=== PATIENT | female | born 1995 | race African-American/Black ===

== ENCOUNTER 2017-02-09 12:32 | Emergency (ER) | payer OTHER ==
[~2017-02-09] VITALS: Ht 177.8 cm; Wt 100.0 kg
[~2017-02-09 12:32] MED LIST: SERO200T PO
[2017-02-09 12:34] VITALS: BP 120/75; PULSE 113; RESP 20; TEMP 98.8; O2SAT 99
[2017-02-09] MEDS ORDERED: albuterol inhaler (12:46)
[2017-02-09] MEDS ORDERED: SODIUM CHLOR 0.9% 1000 ML INJ 1,000 ML IV SCH (13:14)
[2017-02-09] MEDS ORDERED: ONDANSETRON HCL 4 MG/2 ML VIAL IVP ONE (13:15)
[2017-02-09] MEDS ORDERED: ALUMINUM/MAGNESIUM/SIMETH 30 ML CUP PO ONE (13:15)
[2017-02-09] MEDS ORDERED: LIDOCAINE VISCOUS 2% SOLN 15 ML UDC PO ONE (13:15)
[2017-02-09] MEDS ORDERED: SODIUM CHLORIDE 0.9% FLUSH 10 ML FLUSH IV FLUSH PRN (13:15)
--- NOTE | 2017-02-09 13:15 | PD ---
HPI Chief Complaint: Abdominal Pain Time Seen by Provider: 12:53 Travel History International Travel<30 days: No Contact w/Intl Traveler<30days: No Traveled to known affect area: No History of Present Illness HPI 21 year old female presents to the ED for evaluation of epigastric pain, nausea , and vomiting since yesterday. Pt denies hematemesis. Pt states epigastric pain is exacerbated after vomiting, but then seems to improve. Pt reports chronic diarrhea since her gallbladder being removed 2 years ago. Denies fever and chills. Denies chest pain or tightness. no other symptoms to report. PFSH Past Medical History ADHD: Yes Asthma: Yes Blood Disorders: No Anxiety: Yes Depression: Yes Cancer: No Cardiovascular Problems: No Diminished Hearing: No Endocrine: No Genitourinary: No Immune Disorder: No Musculoskeletal: No Neurologic: No Reproductive: No Respiratory: Yes ?: Unknown LMP: 01/07/2017 : 2 Para: 1 Past Surgical History Section: No Cholecystectomy: Yes Other Surgery: No Social History Alcohol Use: No Tobacco Use: No Substance Use: No Allergies-Medications (Allergen,Severity, Reaction): Coded Allergies: chocolate flavor (Unverified Allergy, Severe, 02/09/17) shellfish derived (Unverified Allergy, Unknown, 02/09/17) Reported Meds & Prescriptions Reported Meds & Active Scripts Active Zofran Odt (Ondansetron Odt) 4 Mg Tab 4 Mg SL Q6HR PRN Omeprazole 40 Mg Cap 40 Mg PO DAILY Reported [albuterol inhaler] Review of Systems Except as stated in HPI: all other systems reviewed are Neg Physical Exam Narrative GENERAL: Well-nourished, well-developed male patient in no acute distress SKIN: Focused skin assessment warm/dry. HEAD: Normocephalic. EYES: No scleral icterus. No injection or drainage. NECK: Supple, trachea midline. No JVD or lymphadenopathy. CARDIOVASCULAR: Regular rate and rhythm without murmurs, gallops, or rubs. RESPIRATORY: Breath sounds equal bilaterally. No accessory muscle use. GASTROINTESTINAL: Abdomen soft, undistended. Mild epigastric tenderness to palpation. No rebound tenderness. No guarding. Normal active bowel sounds. MUSCULOSKELETAL: No cyanosis, or edema. BACK: Nontender without obvious deformity. No CVA tenderness. Data Data Last Documented VS Vital Signs Date Time Temp Pulse Resp B/P (MAP) Pulse Ox O2 Delivery O2 Flow Rate FiO2 02/09/17 13:31 98.7 93 19 112/58 (76) 96 Room Air Orders Orders Complete Blood Count With Diff (02/09/17 13:14) Comprehensive Metabolic Panel (02/09/17 13:14) Lipase (02/09/17 13:14) Urinalysis - C+S If Indicated (02/09/17 13:14) Iv Access Insert/Monitor (02/09/17 13:14) Ecg Monitoring (02/09/17 13:14) Oximetry (02/09/17 13:14) Ondansetron Inj (Zofran Inj) (02/09/17 13:15) Sodium Chlor 0.9% 1000 Ml Inj (Ns 1000 M (02/09/17 13:14) Sodium Chloride 0.9% Flush (Ns Flush) (02/09/17 13:15) Al-Mag Hy-Si 40-40-4 Mg/Ml Liq (Mag-Al P (02/09/17 13:15) Lidocaine 2% Viscous (Xylocaine 2% Visco (02/09/17 13:15) Ed Urine Pregnancytest Poc (02/09/17 13:14) Potassium Chloride (Kcl) (02/09/17 14:30) Labs Laboratory Tests Test 02/09/17 13:25 White Blood Count 5.1 TH/MM3 Red Blood Count 4.50 MIL/MM3 Hemoglobin 12.8 GM/DL Hematocrit 38.3 % Mean Corpuscular Volume 85.1 FL Mean Corpuscular Hemoglobin 28.4 PG Mean Corpuscular Hemoglobin Concent 33.4 % Red Cell Distribution Width 15.7 % Platelet Count 200 TH/MM3 Mean Platelet Volume 8.3 FL Neutrophils (%) (Auto) 70.5 % Lymphocytes (%) (Auto) 20.0 % Monocytes (%) (Auto) 7.6 % Eosinophils (%) (Auto) 1.7 % Basophils (%) (Auto) 0.2 % Neutrophils # (Auto) 3.6 TH/MM3 Lymphocytes # (Auto) 1.0 TH/MM3 Monocytes # (Auto) 0.4 TH/MM3 Eosinophils # (Auto) 0.1 TH/MM3 Basophils # (Auto) 0.0 TH/MM3 CBC Comment DIFF FINAL Differential Comment Urine Color YELLOW Urine Turbidity CLEAR Urine pH 6.0 Urine Specific [place] 1.027 Urine Protein 30 mg/dL Urine Glucose (UA) NEG mg/dL Urine Ketones NEG mg/dL Urine Occult Blood NEG Urine Nitrite NEG Urine Bilirubin NEG Urine Urobilinogen LESS THAN 2.0 MG/DL Urine Leukocyte Esterase NEG Urine RBC LESS THAN 1 /hpf Urine WBC 2 /hpf Urine Squamous Epithelial Cells 5 /hpf Urine Hyaline Casts 1 /lpf Urine Mucus FEW /lpf Microscopic Urinalysis Comment CULT NOT INDICATED Blood Urea Nitrogen 11 MG/DL Creatinine 0.68 MG/DL Random Glucose 94 MG/DL Total Protein 6.9 GM/DL Albumin 3.4 GM/DL Calcium Level 7.7 MG/DL Alkaline Phosphatase 57 U/L Aspartate Amino Transf (AST/SGOT) 17 U/L Alanine Aminotransferase (ALT/SGPT) 20 U/L Total Bilirubin 0.9 MG/DL Sodium Level 140 MEQ/L Potassium Level 3.1 MEQ/L Chloride Level 108 MEQ/L Carbon Dioxide Level 24.5 MEQ/L Anion Gap 8 MEQ/L Estimat Glomerular Filtration Rate 131 ML/MIN Lipase 73 U/L [facility] Medical Decision Making Medical Screen Exam Complete: Yes Emergency Medical Condition: Yes Medical Record Reviewed: Yes Differential Diagnosis Gastritis versus indigestion versus PUD versus elective foot abnormality versus Narrative Course 21-year-old female presents to emergency department for evaluation nausea and vomiting. Patient appears without distress. Her vital signs are stable. She has mild epigastric tenderness to palpation, otherwise abdominal exam is benign. Laboratory Tests Test 02/09/17 13:25 White Blood Count 5.1 TH/MM3 Red Blood Count 4.50 MIL/MM3 Hemoglobin 12.8 GM/DL Hematocrit 38.3 % Mean Corpuscular Volume 85.1 FL Mean Corpuscular Hemoglobin 28.4 PG Mean Corpuscular Hemoglobin Concent 33.4 % Red Cell Distribution Width 15.7 % Platelet Count 200 TH/MM3 Mean Platelet Volume 8.3 FL Neutrophils (%) (Auto) 70.5 % Lymphocytes (%) (Auto) 20.0 % Monocytes (%) (Auto) 7.6 % Eosinophils (%) (Auto) 1.7 % Basophils (%) (Auto) 0.2 % Neutrophils # (Auto) 3.6 TH/MM3 Lymphocytes # (Auto) 1.0 TH/MM3 Monocytes # (Auto) 0.4 TH/MM3 Eosinophils # (Auto) 0.1 TH/MM3 Basophils # (Auto) 0.0 TH/MM3 CBC Comment DIFF FINAL Differential Comment Urine Color YELLOW Urine Turbidity CLEAR Urine pH 6.0 Urine Specific [place] 1.027 Urine Protein 30 mg/dL Urine Glucose (UA) NEG mg/dL Urine Ketones NEG mg/dL Urine Occult Blood NEG Urine Nitrite NEG Urine Bilirubin NEG Urine Urobilinogen LESS THAN 2.0 MG/DL Urine Leukocyte Esterase NEG Urine RBC LESS THAN 1 /hpf Urine WBC 2 /hpf Urine Squamous Epithelial Cells 5 /hpf Urine Hyaline Casts 1 /lpf Urine Mucus FEW /lpf Microscopic Urinalysis Comment CULT NOT INDICATED Blood Urea Nitrogen 11 MG/DL Creatinine 0.68 MG/DL Random Glucose 94 MG/DL Total Protein 6.9 GM/DL Albumin 3.4 GM/DL Calcium Level 7.7 MG/DL Alkaline Phosphatase 57 U/L Aspartate Amino Transf (AST/SGOT) 17 U/L Alanine Aminotransferase (ALT/SGPT) 20 U/L Total Bilirubin 0.9 MG/DL Sodium Level 140 MEQ/L Potassium Level 3.1 MEQ/L Chloride Level 108 MEQ/L Carbon Dioxide Level 24.5 MEQ/L Anion Gap 8 MEQ/L Estimat Glomerular Filtration Rate 131 ML/MIN Lipase 73 U/L Patient is a potassium of 3.1. This is repleted here in the emergency department. Patient was given Zofran IV normal saline bolus and verbalize improvement in her symptoms following intervention. She'll be discharged home and agrees to return immediately with any acute worsening symptoms. Diagnosis Primary Impression: Nausea & vomiting Qualified Codes: R11.2 - Nausea with vomiting, unspecified Additional Impression: Hypokalemia Referrals: Primary Care Physician Patient Instructions: Diet for Stomach Ulcers and Gastritis (GEN), General Instructions Additional Instructions: Avoid abrasive and acidic foods Follow-up with a primary care provider Return immediately to the emergency department with any acute worsening of symptoms Med/Other Pt SpecificInfo: Prescription(s) given Scripts Ondansetron Odt (Zofran Odt) 4 Mg Tab 4 MG SL Q6HR Y for Nausea/Vomiting, #10 TAB 0 Refills Prov: Jenifer Martinez 02/09/17 Omeprazole (Omeprazole) 40 Mg Cap 40 MG PO DAILY, #14 CAP 0 Refills Prov: Jenifer Martinez 02/09/17 Disposition: 01 DISCHARGE HOME Condition: Stable Jenifer Martinez Feb 09, 2017 13:15
[2017-02-09 13:31] VITALS: BP 112/58; PULSE 93; RESP 19; TEMP 98.7; O2SAT 96
[2017-02-09 13:59] LABS: AUTOMATED NEUTROPHIL # 3.6 TH/MM3 (1.8-7.7); BASOPHIL % 0.2 % (0.0-2.0); EOSINOPHIL # 0.1 TH/MM3 (0-0.4); EOSINOPHIL % 1.7 % (0.0-4.0); HEMATOCRIT 38.3 % (35.0-46.0); HEMO FLAGS DIFF FINAL; MEAN CELL VOLUME 85.1 FL (80.0-100.0); MEAN CORPUSCULAR HEMOGLOBIN 28.4 PG (27.0-34.0); MEAN CORPUSCULAR HGB CONC 33.4 % (32.0-36.0); MONO % 7.6 % (0.0-8.0); NEUT % 70.5 % (16.0-70.0); PLATELET COUNT 200 TH/MM3 (150-450); RED CELL DISTRIBUTION WIDTH 15.7 % (11.6-17.2); WHITE BLOOD COUNT 5.1 TH/MM3 (4.0-11.0)
[2017-02-09 14:20] LABS: ALT (GPT) 20 U/L (10-53); ANION GAP 8 MEQ/L (5-15); AST (GOT) 17 U/L (15-37); BICARBONATE 24.5 MEQ/L (21.0-32.0); BLOOD UREA NITROGEN 11 MG/DL (7-18); BLOOD, URINE NEG (NEG); CHLORIDE 108 MEQ/L (98-107); COMMENT (UR) CULT NOT INDICATED; CULTURE IF INDICATED CULT NOT INDICATED; GLOMERULAR FILTRATION RATE 131 ML/MIN (>89); GLUCOSE,URINE NEG (NEG); HYALINE CAST, URINE 1 /lpf (RARE); KETONE, URINE NEG (NEG); MUCUS URINE FEW /lpf (OCC); NITRITE,URINE NEG (NEG); POTASSIUM 3.1 MEQ/L (3.5-5.1); SODIUM (NA) 140 MEQ/L (136-145); SQUAMOUS EPITHELIAL CELL URINE 5 /hpf (0-5); URINE COLOR YELLOW (YELLW/STRAW)
[2017-02-09 14:23] LABS: ALKALINE PHOSPHATASE 57 U/L (45-117); TOTAL BILIRUBIN ADULT 0.9 MG/DL (0.2-1.0)
[2017-02-09] MEDS ORDERED: POTASSIUM CHLORIDE 10 MEQ CONTROLLED RELEASE TAB PO ONE (14:30)
[2017-02-09] MEDS ORDERED: OMEP40CA2 PO (14:37)
[2017-02-09] MEDS ORDERED: ZOFR4TAB3 SL (14:37)
[2017-02-09 15:44] VITALS: BP 112/58
== END 2017-02-09 15:00 | disposition home or self-care (01) ==
LOC: NEPD 12:32
DX: R11.2 Nausea with vomiting, unspecified (principal); E87.6 Hypokalemia; J45.909 Unspecified asthma, uncomplicated
CPT/HCPCS: 80053; 81001; 83690; 84703; 85025; 96361; 96374; 99284; J2405; J7030

== ENCOUNTER 2017-03-08 19:11 | Emergency (ER) | payer OTHER ==
[~2017-03-08 19:11] MED LIST changes: +OMEP40CA2 PO; -SERO200T PO; +ZOFR4TAB3 SL; +albuterol inhaler
[2017-03-08 19:12] VITALS: BP 128/80; PULSE 100; RESP 16; TEMP 99; O2SAT 97
== END 2017-03-08 20:50 | disposition left against medical advice (07) ==
LOC: NED 19:11
DX: J00 Acute nasopharyngitis [common cold] (principal)
CPT/HCPCS: 99281

== ENCOUNTER 2017-05-02 08:49 | Emergency (ER) | payer MEDICAID, OTHER ==
[~2017-05-02] VITALS: Ht 177.8 cm; Wt 90.5 kg
[2017-05-02 08:57] VITALS: BP 120/80; PULSE 81; RESP 18; TEMP 98.6; O2SAT 100
[2017-05-02] MEDS ORDERED: SODIUM CHLOR 0.9% 1000 ML INJ 1,000 ML IV SCH (09:34)
[2017-05-02] MEDS ORDERED: SODIUM CHLORIDE 0.9% FLUSH 10 ML FLUSH IV FLUSH PRN (09:45)
[2017-05-02] MEDS ORDERED: ONDANSETRON HCL 4 MG/2 ML VIAL IVP ONE (09:45)
--- NOTE | 2017-05-02 09:53 | PD ---
HPI Chief Complaint: Anxiety Time Seen by Provider: 09:19 Travel History International Travel<30 days: No Contact w/Intl Traveler<30days: No Traveled to known affect area: No History of Present Illness HPI Miss Kowalski is a 21-year-old female who presents emergency room via [facility] for evaluation of an anxiety attack. Patient reports that she was at work today, reports that she had an anxiety attack and EMS were called. Patient reports that she is unsure why she gets these anxiety attacks, reports that when this happens, her heart races and she hyperventilates. Patient reports that she was told to come to the emergency room for evaluation of her anxiety attack, reports that at this time, she has complete resolution of symptoms. Patient unsure of why she had an anxiety attack this morning. Patient denies any chest pain or palpitations this time, reports that she does feel comfortable. Denies any shortness of breath at this time. Denies any use of drugs or alcohol Patient reports that this morning, she did have an episode of lightheadedness and did have an episode of nausea and vomiting around 4 AM. Patient reports no abdominal pain at this time, reports resolution of nausea and vomiting. Patient reports that she does feel lightheaded, denies any overt headache, denies any fever or chills, denies any trauma to the head. Denies any vision changes, reports that nothing makes symptoms better or worse at this time. PFSH Past Medical History ADHD: Yes Asthma: Yes Blood Disorders: No Anxiety: Yes Depression: Yes Cancer: No Cardiovascular Problems: No Diminished Hearing: No Endocrine: No Genitourinary: No Immune Disorder: No Musculoskeletal: No Neurologic: No Reproductive: No Respiratory: Yes : 2 Para: 1 Past Surgical History Section: No Cholecystectomy: Yes Other Surgery: No Social History Alcohol Use: No Tobacco Use: No Substance Use: No Allergies-Medications (Allergen,Severity, Reaction): Coded Allergies: chocolate flavor (Verified Allergy, Severe, rash, 05/02/17) shellfish derived (Verified Allergy, Unknown, rash, 05/02/17) Reported Meds & Prescriptions Reported Meds & Active Scripts Active Review of Systems General / Constitutional: No: Fever Eyes: No: Visual changes HENT: Positive: Lightheadedness, No: Headaches Cardiovascular: No: Chest Pain or Discomfort Respiratory: No: Shortness of Breath Gastrointestinal: Positive: Nausea, Vomiting, No: Diarrhea, Abdominal Pain, Constipation Genitourinary: No: Dysuria Musculoskeletal: No: Pain Skin: No Rash Neurologic: No: Weakness, Dizziness, Headache Psychiatric: Positive: Anxiety, No: Depression, Suicidal Ideations, Homicidal Ideation Endocrine: No: Polydipsia Hematologic/Lymphatic: No: Easy Bruising Physical Exam Narrative GENERAL: No acute distress, nontoxic, patient is playing with her cell phone while talking to me during evaluation SKIN: Focused skin assessment warm/dry. HEAD: Atraumatic. Normocephalic. EYES: Pupils equal and round. No scleral icterus. No injection or drainage. ENT: No nasal bleeding or discharge. Mucous membranes pink and moist. NECK: Trachea midline. No JVD. CARDIOVASCULAR: Regular rate and rhythm. No murmur appreciated. RESPIRATORY: No accessory muscle use. Clear to auscultation. Breath sounds equal bilaterally. GASTROINTESTINAL: Abdomen soft, non-tender, nondistended. Hepatic and splenic margins not palpable. MUSCULOSKELETAL: No obvious deformities. No clubbing. No cyanosis. No edema. NEUROLOGICAL: Awake and alert. No obvious cranial nerve deficits. Motor grossly within normal limits. Normal speech. PSYCHIATRIC: Appropriate mood and affect; insight and judgment normal. Data Data Last Documented VS Vital Signs Date Time Temp Pulse Resp B/P (MAP) Pulse Ox O2 Delivery O2 Flow Rate FiO2 05/02/17 10:30 78 16 05/02/17 10:30 115/64 (81) 119/99 (106) 120/68 (85) 05/02/17 08:57 98.6 100 Room Air Orders Orders Basic Metabolic Panel (Bmp) (05/02/17 09:34) Complete Blood Count With Diff (05/02/17 09:34) Urinalysis - C+S If Indicated (05/02/17 09:34) Iv Access Insert/Monitor (05/02/17 09:34) Ondansetron Inj (Zofran Inj) (05/02/17 09:45) Sodium Chlor 0.9% 1000 Ml Inj (Ns 1000 M (05/02/17 09:34) Sodium Chloride 0.9% Flush (Ns Flush) (05/02/17 09:45) Ed Urine Pregnancytest Poc (05/02/17 09:34) Orthostatic Vital Signs (05/02/17 09:52) Labs Laboratory Tests Test 05/02/17 10:30 05/02/17 10:47 White Blood Count 6.2 TH/MM3 Red Blood Count 4.58 MIL/MM3 Hemoglobin 13.1 GM/DL Hematocrit 39.3 % Mean Corpuscular Volume 85.9 FL Mean Corpuscular Hemoglobin 28.6 PG Mean Corpuscular Hemoglobin Concent 33.4 % Red Cell Distribution Width 14.8 % Platelet Count 253 TH/MM3 Mean Platelet Volume 8.3 FL Neutrophils (%) (Auto) 51.5 % Lymphocytes (%) (Auto) 37.9 % Monocytes (%) (Auto) 8.3 % Eosinophils (%) (Auto) 1.5 % Basophils (%) (Auto) 0.8 % Neutrophils # (Auto) 3.2 TH/MM3 Lymphocytes # (Auto) 2.3 TH/MM3 Monocytes # (Auto) 0.5 TH/MM3 Eosinophils # (Auto) 0.1 TH/MM3 Basophils # (Auto) 0.1 TH/MM3 CBC Comment DIFF FINAL Differential Comment Blood Urea Nitrogen 12 MG/DL Creatinine 0.67 MG/DL Random Glucose 88 MG/DL Calcium Level 8.7 MG/DL Sodium Level 139 MEQ/L Potassium Level 3.7 MEQ/L Chloride Level 106 MEQ/L Carbon Dioxide Level 26.1 MEQ/L Anion Gap 7 MEQ/L Estimat Glomerular Filtration Rate 133 ML/MIN Urine Color YELLOW Urine Turbidity HAZY Urine pH 6.0 Urine Specific [place] 1.038 Urine Protein 30 mg/dL Urine Glucose (UA) NEG mg/dL Urine Ketones 40 mg/dL Urine Occult Blood NEG Urine Nitrite NEG Urine Bilirubin NEG Urine Urobilinogen 2.0 MG/DL Urine Leukocyte Esterase MOD Urine RBC 1 /hpf Urine WBC 3 /hpf Urine Squamous Epithelial Cells 7 /hpf Urine Bacteria RARE /hpf Urine Mucus MANY /lpf Microscopic Urinalysis Comment CULT NOT INDICATED MDM Medical Decision Making Medical Screen Exam Complete: Yes Emergency Medical Condition: Yes Medical Record Reviewed: Yes Interpretation(s) Vital Signs Date Time Temp Pulse Resp B/P (MAP) Pulse Ox O2 Delivery O2 Flow Rate FiO2 05/02/17 08:57 98.6 81 18 120/80 (93) 100 Room Air Differential Diagnosis anxiety attack, electrolyte abnormality, dehydration, Narrative Course During the course of the patients emergency department visit, the patients history, examination, and differential diagnosis were reviewed with the patient. The patient was placed on a biological sciences professor with oximetry and frequent blood pressure monitoring. The patient had an IV access obtained and blood work sent for analysis. The patient was initially provided IV fluids as well as IV Zofran. The patients laboratory studies were reviewed and remarkable for Laboratory Tests Test 05/02/17 10:30 05/02/17 10:47 White Blood Count 6.2 TH/MM3 (4.0-11.0) Red Blood Count 4.58 MIL/MM3 (4.00-5.30) Hemoglobin 13.1 GM/DL (11.6-15.3) Hematocrit 39.3 % (35.0-46.0) Mean Corpuscular Volume 85.9 FL (80.0-100.0) Mean Corpuscular Hemoglobin 28.6 PG (27.0-34.0) Mean Corpuscular Hemoglobin Concent 33.4 % (32.0-36.0) Red Cell Distribution Width 14.8 % (11.6-17.2) Platelet Count 253 TH/MM3 (150-450) Mean Platelet Volume 8.3 FL (7.0-11.0) Neutrophils (%) (Auto) 51.5 % (16.0-70.0) Lymphocytes (%) (Auto) 37.9 % (9.0-44.0) Monocytes (%) (Auto) 8.3 % (0.0-8.0) Eosinophils (%) (Auto) 1.5 % (0.0-4.0) Basophils (%) (Auto) 0.8 % (0.0-2.0) Neutrophils # (Auto) 3.2 TH/MM3 (1.8-7.7) Lymphocytes # (Auto) 2.3 TH/MM3 (1.0-4.8) Monocytes # (Auto) 0.5 TH/MM3 (0-0.9) Eosinophils # (Auto) 0.1 TH/MM3 (0-0.4) Basophils # (Auto) 0.1 TH/MM3 (0-0.2) CBC Comment DIFF FINAL Differential Comment Blood Urea Nitrogen 12 MG/DL (7-18) Creatinine 0.67 MG/DL (0.50-1.00) Random Glucose 88 MG/DL (74-106) Calcium Level 8.7 MG/DL (8.5-10.1) Sodium Level 139 MEQ/L (136-145) Potassium Level 3.7 MEQ/L (3.5-5.1) Chloride Level 106 MEQ/L (98-107) Carbon Dioxide Level 26.1 MEQ/L (21.0-32.0) Anion Gap 7 MEQ/L (5-15) Estimat Glomerular Filtration Rate 133 ML/MIN (>89) Urine Color YELLOW (YELLW/STRAW) Urine Turbidity HAZY (CLEAR) Urine pH 6.0 (5.0-8.5) Urine Specific [place] 1.038 (1.002-1.035) Urine Protein 30 mg/dL (NEG-TRACE) Urine Glucose (UA) NEG mg/dL (NEG) Urine Ketones 40 mg/dL (NEG) Urine Occult Blood NEG (NEG) Urine Nitrite NEG (NEG) Urine Bilirubin NEG (NEG) Urine Urobilinogen 2.0 MG/DL (LESS THAN Urine Leukocyte Esterase MOD (NEG) Urine RBC 1 /hpf (0-3) Urine WBC 3 /hpf (0-5) Urine Squamous Epithelial Cells 7 /hpf (0-5) Urine Bacteria RARE /hpf (NONE) Urine Mucus MANY /lpf (OCC) Microscopic Urinalysis Comment CULT NOT INDICATED Patient reevaluated, patient reports that she is feeling much better at this time. I reviewed all labs with patient in detail, I encouraged patient to drink plenty of fluids. Patient denies suicidal or homicidal ideations at this time. Signs and symptoms of when to return to the emergency room was reviewed with patient in detail. She'll follow-up with primary care doctor and will return to the emergency room as needed. Patient with no nausea or vomiting at this time, no abdominal pain, patient nontoxic smiling at discharge. Diagnosis Primary Impression: Anxiety Additional Impression: Lightheadedness Patient Instructions: General Instructions Additional Instructions: Please drink plenty of fluids Please follow up with your primary care doctor in 2-3 days Return to the ER if symptoms worsen or progress Return to the ER as needed Scripts No Active Prescriptions or Reported Meds Disposition: 01 DISCHARGE HOME Condition: Stable Darcy Rivers DO May 02, 2017 09:53
[2017-05-02 10:30] VITALS: BP_SYST 115; BP_SYST 119; BP_SYST 120; BP_DIAS 64; BP_DIAS 68; BP_DIAS 99; RESP 16; RESP 18
[2017-05-02 11:07] LABS: AUTOMATED NEUTROPHIL # 3.2 TH/MM3 (1.8-7.7); BASOPHIL # 0.1 TH/MM3 (0-0.2); BASOPHIL % 0.8 % (0.0-2.0); EOSINOPHIL # 0.1 TH/MM3 (0-0.4); EOSINOPHIL % 1.5 % (0.0-4.0); HEMATOCRIT 39.3 % (35.0-46.0); HEMO FLAGS DIFF FINAL; LYMPH % 37.9 % (9.0-44.0); LYMPHOCYTE # 2.3 TH/MM3 (1.0-4.8); MEAN CELL VOLUME 85.9 FL (80.0-100.0); MEAN CORPUSCULAR HEMOGLOBIN 28.6 PG (27.0-34.0); MEAN CORPUSCULAR HGB CONC 33.4 % (32.0-36.0); MONO % 8.3 % (0.0-8.0); NEUT % 51.5 % (16.0-70.0); PLATELET COUNT 253 TH/MM3 (150-450); RED BLOOD COUNT 4.58 MIL/MM3 (4.00-5.30); RED CELL DISTRIBUTION WIDTH 14.8 % (11.6-17.2); WHITE BLOOD COUNT 6.2 TH/MM3 (4.0-11.0)
[2017-05-02 11:08] LABS: BACTERIA, URINE RARE /hpf; BLOOD, URINE NEG (NEG); COMMENT (UR) CULT NOT INDICATED; CULTURE IF INDICATED CULT NOT INDICATED; GLUCOSE,URINE NEG (NEG); KETONE, URINE 40 mg/dL (NEG); MUCUS URINE MANY /lpf (OCC); NITRITE,URINE NEG (NEG); SQUAMOUS EPITHELIAL CELL URINE 7 /hpf (0-5); URINE COLOR YELLOW (YELLW/STRAW)
[2017-05-02 11:36] LABS: BICARBONATE 26.1 MEQ/L (21.0-32.0); POTASSIUM 3.7 MEQ/L (3.5-5.1)
[2017-05-02 12:46] VITALS: BP 117/70; TEMP 97.6
== END 2017-05-02 12:49 | disposition home or self-care (01) ==
LOC: NEPD 08:49
DX: F41.9 Anxiety disorder, unspecified (principal); R42 Dizziness and giddiness; R11.2 Nausea with vomiting, unspecified; F90.9 Attention-deficit hyperactivity disorder, unspecified type; J45.909 Unspecified asthma, uncomplicated
CPT/HCPCS: 80048; 81001; 84703; 85025; 96361; 96374; 99284; J2405; J7030